=== PATIENT | female | born 1940 | race Caucasian/White ===

== ENCOUNTER 2025-07-11 15:26 | Emergency (ER) | payer OTHER ==
[~2025-07-11] VITALS: Ht 167.6 cm; Wt 72.0 kg
[2025-07-11 15:31] VITALS: O2SAT 98
[2025-07-11] MEDS: ACETAMINOPHEN 325MG TABLET PO ONE (18:13)
[2025-07-11] MEDS ORDERED: ACET-2708 MT (19:45)
[2025-07-11] MEDS ORDERED: IBUP-2028 MT (19:45)
[2025-07-11] MEDS ORDERED: CYCL5TAB3 MT (19:45)
[2025-07-11] MEDS ORDERED: LIDO-53 TP (19:45)
[2025-07-11] MEDS: LIDOCAINE 5% PATCH TOP SCH (20:11)
[2025-07-11] MEDS: CYCLOBENZAPRINE 10MG TABLET PO STA (20:11)
[2025-07-11 20:16] VITALS: BP 156/75; PULSE 63; RESP 18; TEMP 36.7; O2SAT 98
== END 2025-07-11 20:18 | disposition home or self-care (01) ==
LOC: ER 15:26
DX: S00.83XA Contusion of other part of head, initial encounter (principal); S00.01XA Abrasion of scalp, initial encounter; M79.644 Pain in right finger(s); M79.641 Pain in right hand; I10 Essential (primary) hypertension; Z85.118 Personal history of other malignant neoplasm of bronchus and lung; Z86.018 Personal history of other benign neoplasm; Z88.0 Allergy status to penicillin; Z88.5 Allergy status to narcotic agent; W01.0XXA Fall on same level from slipping, tripping and stumbling without subsequent striking against object, initial encounter; Y93.89 Activity, other specified; Y92.89 Other specified places as the place of occurrence of the external cause; Y99.8 Other external cause status
CPT/HCPCS: 73130; 99284